=== PATIENT | male | born 1970 | race Caucasian/White ===

== ENCOUNTER → 2016-07-23 | Outpatient (CLI) | payer BC ==
[2016-07-23 17:45] LABS: BASO % 0.5 %; BASO ABS # 0.04 K/uL (0-0.2); COMPLETE YES; EOS % 3.3 %; HEMATOCRIT 43.2 % (42-52); IG% 0.4 %; LYMPH % 30.7 %; LYMPH ABS # 2.24 K/uL (1.2-3.4); MEAN CELL VOLUME 87.4 fL (80-100); MEAN CORPUSCULAR HEMOGLOBIN 31.8 pg (25-34); MEAN CORPUSCULAR HGB CONC 36.3 g/dl (32-36); MEAN PLATELET VOLUME 9.8 fL (7.4-10.4); NEUT % 57.1 %; PLATELET COUNT 219 K/uL (130-400); RED BLOOD COUNT 4.94 M/uL (4.7-6.1); WHITE BLOOD COUNT 7.29 K/uL (4.8-10.8)
[2016-07-23 18:25] LABS: ALT/SGPT 34 U/L (12-78); AST/SGOT 15 U/L (15-37); BLOOD UREA NITROGEN 11 mg/dl (7-18); BUN/CREATININE RATIO 8.8 (10-20); CALCIUM 8.9 mg/dl (8.5-10.1); CARBON DIOXIDE 29 mmol/L (21-32); CHLORIDE 107 mmol/L (98-107); GLUCOSE 102 mg/dl (70-99); SODIUM 143 mmol/L (136-145)
[2016-07-23 18:27] LABS: ALB/GLOB RATIO 1.2 (0.9-2); ALKALINE PHOSPHATASE 81 U/L (45-117)
== END | disposition home or self-care (01) ==
LOC: C.LABMFLN 11:07
PROVIDERS: ATTEND Dermatology
DX: Z85.820 Personal history of malignant melanoma of skin (principal)

== ENCOUNTER 2024-11-19 16:46 | Inpatient (IN) ==
[2024-11-19] MEDS: SODIUM CHLORIDE 0.9% 1,000 ML IV SCH (16:57)
[2024-11-19] MEDS: ONDANSETRON INJ 2 MG/ML 2 ML VIAL IV STA ×2 (17:03→19:06)
[2024-11-19] MEDS: KETOROLAC 30 MG/ML VIAL IV STA (17:06)
[2024-11-19] MEDS: DIPHTHER/TETAN/PERTUS Vaccine (Tdap, Adol/Adult) 0.5mL IM ONE (17:08)
[2024-11-19 17:14] LABS: Fibrinogen 201 mg/dl (184-400)
--- NOTE | 2024-11-19 17:17 | Emergency Department Note ---
Impression & Plan Venomous snake bite, Swelling of right upper extremity, Thrombocytopenia ED Provider Note NAME: MACKENZIE DAMIAN AGE: 54 SEX: M : 1970 ARRIVES VIA: Ambulance INFORMANT: Patient, ED PROVIDER(S): Alexandre Toscano MD CHIEF COMPLAINT: Rattlesnake bite MEDICAL DECISION MAKING: Patient presents with the above. IV was established and blood work was obtained along with coags fibrinogen. The patient was ordered updated tetanus shot, IV Ancef IV fentanyl after discussing with poison control who recommended the fentanyl as sometimes morphine can cause a histamine reaction. I did speak with pharmacy after ordering the patient's CroFab given the patient's significant swelling to the right hand. Patient does have some decreased sensation to the hand which is swollen but department compartments while swollen still feel soft and he is able to flex and extend the fingers as well as raise his thumb up and down. The extremity was kept up on a bed of pillows at the level of the heart. After speaking with poison trolls he did recommend what had already been initiated, which was crofab administration. Blood work does show a normal white count with normal hemoglobin platelet count of 16. Kidney function is unremarkable. Dimer 2400 with the patient's PT/INR APTT and fibrinogen are normal. Patient has had no significant bleeding noted. Patient did have a recurrence of nausea and vomiting was ordered additional IV Zofran. I did speak with poison control who stated the patient may receive an additional 2 vials at 6 hours post envenomation. This happened around 330 so repeat labs were ordered for 930. Patient does have swelling to the proximal forearm. Patient's hand has been reassessed several times and while the patient does have significant swelling the compartments are still soft and not taut and I able to range each finger with flexion and extension and the patient does not have significant pain. Do not believe the patient has evidence of compartment syndrome at this time. Upon subsequent reassessments the patient's pain is continuing to improve is less swollen and more mobile sensation improving. I did speak to poison control again after repeat CBC of the patient's coags that hemolyzed. Pending repeats. The patient's repeat platelet count is in the 200s. They did not recommend additional bolus doses but recommended 2 vials of CroFab every 6 hours x 3 after the initial bolus of 6 vials. Patient was informed of these findings. I did speak with Dr. Vargas and the patient was admitted to the medicine service. Critical Care: I have personally spent 150 minutes of critical care time in direct management of this patient. This includes bedside care, interpretation of diagnostic studies, and testing, discussion with consultants, patient, and family members, and other require inpatient management activities. This 150 minutes is in excess of all separately billable procedures. Discussion w/ other healthcare providers: [facility] poison control Dr. Vargas inpatient medicine service Prior /Outside records reviewed: None Differential diagnosis: Snakebite, coagulopathy, retained foreign body, compartment syndrome, cellulitis among others were considered. Diagnostics, as interpreted by me: ECG: None Cardiac monitoring: An order was placed for continuous cardiac monitoring. The monitor shows a rate of 69 with sinus rhythm. Patient was placed on pulse oximetry Medical decision rules: None Imaging studies: I informally interpreted the patient's right hand x-ray without obvious fracture with formal report to follow. HPI: Patient presents to concern for snake bite to the right hand. Patient was reportedly trying to move a snake off the road when he was bit around 330. Patient reportedly tried to suck the venom out. The patient did report feeling a little lightheaded and dizzy. EMS reported the patient felt as though his body was "whirring." Patient denies any chest pain or shortness of breath. He does have some associated nausea and abdominal discomfort. No difficulty with breathing. Per EMS they reported that he felt as though he had some swelling to the throat after trying to suck out the venom. PAST MEDICAL HISTORY: See Below PAST SURGICAL HISTORY: See Below SOCIAL HISTORY: See Below HOME MEDICATIONS: See Below ALLERGIES: See Below VITALS: See Below PHYSICAL EXAMINATION: GENERAL: NAD, non-toxic. EYE EXAM: Normal conjunctiva. PERRL, no anisocoria and EOM's grossly intact w/o pain. OROPHARYNX: Moist mucus membranes, grossly normal dentition. NECK: Trachea midline, no stridor. LUNGS: Clear to auscultation. Normal chest wall mechanics. HEART: NSR, no MRG. ABDOMEN: Abdomen soft, non-tender, no masses, no rebound or guarding. BACK: No CVA TTP. SKIN: No rashes and no bruising. UPPER EXTREMITIES: Significant right hand swelling with 2 puncture wounds to the posterior aspect of the right hand between the 1st and 2nd digits, hemostatic, able to flex and extend each of the fingers as well as the thumb, slight decrease sensation, swollen but compartments are still soft and not taut. Mild swelling noted to the proximal forearm to the mid forearm. LOWER EXTREMITIES: Grossly normal, no edema. NEURO EXAM: Awake and alert, follows commands, no obvious facial asymmetry, normal speech, moves all 4 extremities. Past Med/Surg History Problem List (Updated 11/20/24 @ 13:41 by Alexandre Toscano MD) Thrombocytopenia (Acute) Venomous snake bite (Acute) Swelling of right upper extremity (Acute) Social History Smoking Status: Former smoker Tobacco Type: Cigarettes and Smokeless Tobacco (Dip or Chew) Do You Dip or Chew Tobacco: No (Former); Hx Alcohol Use: Yes Alcohol type: beer Hx Substance Use: No Preferred Language: Serbian Communication Ability: Effective Step Down Nurse Required: No Beliefs That Will Affect Care: None Current Living Situation: Family Current Living Situation Comment: Home with father Feels Safe at Home: Yes Assistive Devices: None Allergies Allergies Allergy/AdvReac Type Severity Reaction Status Date / Time No Known Allergies Allergy Unverified 11/19/24 17:14 Home Meds Home Medications Medication Instructions Recorded Confirmed No Known Home Medications 11/20/24 11/20/24 Results & Data (ED) Vital Signs Vital Signs - 24 hr 11/19/24 16:45 11/19/24 17:15 11/19/24 17:15 Temperature 36.4 C L Temperature Source Oral Pulse Rate 95 H Pulse Rate [Apical] 81 Pulse Rate from SpO2 Sensor Pulse Rhythm [Apical] Pulse Strength [Apical] Respiratory Rate 14 33 H Respiratory Effort / Characteristics Respiratory Depth Respiratory Pattern Blood Pressure 117/82 100/74 Blood Pressure [Left Arm] 121/75 Blood Pressure Mean 93 87 Blood Pressure Mean [Left Arm] 90 Blood Pressure Position [Left Arm] Pulse Oximetry 99 100 Oxygen Delivery Method Room Air Room Air Sepsis New/Unexplained Change in Mental Status No Sepsis Action Taken by Nursing No Action Required 11/19/24 17:21 11/19/24 17:27 11/19/24 17:29 Temperature Temperature Source Pulse Rate 76 71 84 Pulse Rate [Apical] Pulse Rate from SpO2 Sensor 76 70 Pulse Rhythm [Apical] Pulse Strength [Apical] Respiratory Rate 23 22 Respiratory Effort / Characteristics Respiratory Depth Respiratory Pattern Blood Pressure Blood Pressure [Left Arm] Blood Pressure Mean Blood Pressure Mean [Left Arm] Blood Pressure Position [Left Arm] Pulse Oximetry 100 100 Oxygen Delivery Method Room Air Room Air Sepsis New/Unexplained Change in Mental Status Sepsis Action Taken by Nursing 11/19/24 17:30 11/19/24 17:36 11/19/24 17:46 Temperature Temperature Source Pulse Rate 72 Pulse Rate [Apical] Pulse Rate from SpO2 Sensor 71 Pulse Rhythm [Apical] Pulse Strength [Apical] Respiratory Rate 22 Respiratory Effort / Characteristics Respiratory Depth Respiratory Pattern Blood Pressure 116/77 128/40 L Blood Pressure [Left Arm] Blood Pressure Mean 82 46 Blood Pressure Mean [Left Arm] Blood Pressure Position [Left Arm] Pulse Oximetry 100 Oxygen Delivery Method Room Air Sepsis New/Unexplained Change in Mental Status Sepsis Action Taken by Nursing 11/19/24 17:48 11/19/24 17:58 11/19/24 18:00 Temperature Temperature Source Pulse Rate 67 Pulse Rate [Apical] 70 63 Pulse Rate from SpO2 Sensor 66 Pulse Rhythm [Apical] Pulse Strength [Apical] Respiratory Rate 24 17 24 Respiratory Effort / Characteristics Respiratory Depth Respiratory Pattern Blood Pressure Blood Pressure [Left Arm] 120/66 Blood Pressure Mean Blood Pressure Mean [Left Arm] 84 Blood Pressure Position [Left Arm] Pulse Oximetry 100 100 100 Oxygen Delivery Method Room Air Room Air Room Air Sepsis New/Unexplained Change in Mental Status Sepsis Action Taken by Nursing 11/19/24 18:09 11/19/24 18:16 11/19/24 18:30 Temperature Temperature Source Pulse Rate 62 60 Pulse Rate [Apical] Pulse Rate from SpO2 Sensor 62 59 L Pulse Rhythm [Apical] Pulse Strength [Apical] Respiratory Rate 14 16 Respiratory Effort / Characteristics Respiratory Depth Respiratory Pattern Blood Pressure 117/88 Blood Pressure [Left Arm] Blood Pressure Mean 95 Blood Pressure Mean [Left Arm] Blood Pressure Position [Left Arm] Pulse Oximetry 98 99 Oxygen Delivery Method Room Air Room Air Sepsis New/Unexplained Change in Mental Status Sepsis Action Taken by Nursing 11/19/24 18:31 11/19/24 18:45 11/19/24 18:47 Temperature Temperature Source Pulse Rate 61 Pulse Rate [Apical] Pulse Rate from SpO2 Sensor 62 Pulse Rhythm [Apical] Pulse Strength [Apical] Respiratory Rate 17 Respiratory Effort / Characteristics Respiratory Depth Respiratory Pattern Blood Pressure 116/83 136/80 Blood Pressure [Left Arm] Blood Pressure Mean 91 98 Blood Pressure Mean [Left Arm] Blood Pressure Position [Left Arm] Pulse Oximetry 100 Oxygen Delivery Method Room Air Sepsis New/Unexplained Change in Mental Status Sepsis Action Taken by Nursing 11/19/24 18:47 11/19/24 18:47 11/19/24 18:48 Temperature Temperature Source Pulse Rate 57 L Pulse Rate [Apical] Pulse Rate from SpO2 Sensor 58 L Pulse Rhythm [Apical] Pulse Strength [Apical] Respiratory Rate 16 Respiratory Effort / Characteristics Respiratory Depth Respiratory Pattern Blood Pressure 136/80 136/80 Blood Pressure [Left Arm] Blood Pressure Mean 98 98 Blood Pressure Mean [Left Arm] Blood Pressure Position [Left Arm] Pulse Oximetry 100 Oxygen Delivery Method Sepsis New/Unexplained Change in Mental Status Sepsis Action Taken by Nursing 11/19/24 19:03 11/19/24 19:15 11/19/24 19:15 Temperature Temperature Source Pulse Rate 66 65 Pulse Rate [Apical] Pulse Rate from SpO2 Sensor 69 66 Pulse Rhythm [Apical] Pulse Strength [Apical] Respiratory Rate 21 18 Respiratory Effort / Characteristics Respiratory Depth Respiratory Pattern Blood Pressure 129/96 Blood Pressure [Left Arm] Blood Pressure Mean 98 Blood Pressure Mean [Left Arm] Blood Pressure Position [Left Arm] Pulse Oximetry 99 92 Oxygen Delivery Method Sepsis New/Unexplained Change in Mental Status Sepsis Action Taken by Nursing 11/19/24 19:17 11/19/24 19:24 11/19/24 19:30 Temperature Temperature Source Pulse Rate 68 Pulse Rate [Apical] 70 Pulse Rate from SpO2 Sensor 68 Pulse Rhythm [Apical] Regular Pulse Strength [Apical] Normal Respiratory Rate 20 21 Respiratory Effort / Characteristics Non-Labored Respiratory Depth Normal Respiratory Pattern Regular Blood Pressure 145/79 H Blood Pressure [Left Arm] 129/96 Blood Pressure Mean 94 Blood Pressure Mean [Left Arm] 107 Blood Pressure Position [Left Arm] Sitting Pulse Oximetry 97 100 Oxygen Delivery Method Room Air Sepsis New/Unexplained Change in Mental Status Sepsis Action Taken by Nursing 11/19/24 19:30 11/19/24 19:30 11/19/24 19:30 Temperature Temperature Source Pulse Rate Pulse Rate [Apical] Pulse Rate from SpO2 Sensor Pulse Rhythm [Apical] Pulse Strength [Apical] Respiratory Rate Respiratory Effort / Characteristics Respiratory Depth Respiratory Pattern Blood Pressure 145/79 H 145/79 H 145/79 H Blood Pressure [Left Arm] Blood Pressure Mean 94 94 94 Blood Pressure Mean [Left Arm] Blood Pressure Position [Left Arm] Pulse Oximetry Oxygen Delivery Method Sepsis New/Unexplained Change in Mental Status Sepsis Action Taken by Nursing 11/19/24 19:31 11/19/24 19:33 11/19/24 19:42 Temperature 36.5 C Temperature Source Oral Pulse Rate 69 63 Pulse Rate [Apical] 71 Pulse Rate from SpO2 Sensor 69 63 Pulse Rhythm [Apical] Pulse Strength [Apical] Respiratory Rate 20 15 14 Respiratory Effort / Characteristics Non-Labored Spontaneous Respiratory Depth Normal Respiratory Pattern Regular Blood Pressure Blood Pressure [Left Arm] 145/79 H Blood Pressure Mean Blood Pressure Mean [Left Arm] 101 Blood Pressure Position [Left Arm] Semi-fowlers Pulse Oximetry 99 100 100 Oxygen Delivery Method Room Air Sepsis New/Unexplained Change in Mental Status Sepsis Action Taken by Nursing 11/19/24 19:46 11/19/24 19:48 11/19/24 19:57 Temperature Temperature Source Pulse Rate 69 66 Pulse Rate [Apical] Pulse Rate from SpO2 Sensor 66 66 Pulse Rhythm [Apical] Pulse Strength [Apical] Respiratory Rate 13 18 Respiratory Effort / Characteristics Respiratory Depth Respiratory Pattern Blood Pressure 145/83 H Blood Pressure [Left Arm] Blood Pressure Mean 96 Blood Pressure Mean [Left Arm] Blood Pressure Position [Left Arm] Pulse Oximetry 99 100 Oxygen Delivery Method Sepsis New/Unexplained Change in Mental Status Sepsis Action Taken by Nursing 11/19/24 20:00 11/19/24 20:00 11/19/24 20:00 Temperature Temperature Source Pulse Rate Pulse Rate [Apical] 69 Pulse Rate from SpO2 Sensor Pulse Rhythm [Apical] Pulse Strength [Apical] Respiratory Rate 19 Respiratory Effort / Characteristics Non-Labored Spontaneous Respiratory Depth Normal Respiratory Pattern Regular Blood Pressure 139/84 139/84 Blood Pressure [Left Arm] 139/84 Blood Pressure Mean 100 100 Blood Pressure Mean [Left Arm] 102 Blood Pressure Position [Left Arm] Semi-fowlers Pulse Oximetry 100 Oxygen Delivery Method Room Air Sepsis New/Unexplained Change in Mental Status Sepsis Action Taken by Nursing 11/19/24 20:09 11/19/24 20:15 11/19/24 20:15 Temperature Temperature Source Pulse Rate 65 Pulse Rate [Apical] Pulse Rate from SpO2 Sensor 68 Pulse Rhythm [Apical] Pulse Strength [Apical] Respiratory Rate 23 Respiratory Effort / Characteristics Respiratory Depth Respiratory Pattern Blood Pressure 141/85 H 141/85 H Blood Pressure [Left Arm] Blood Pressure Mean 99 99 Blood Pressure Mean [Left Arm] Blood Pressure Position [Left Arm] Pulse Oximetry 100 Oxygen Delivery Method Sepsis New/Unexplained Change in Mental Status Sepsis Action Taken by Nursing 11/19/24 20:21 11/19/24 20:30 11/19/24 20:30 Temperature Temperature Source Pulse Rate 73 67 Pulse Rate [Apical] 67 Pulse Rate from SpO2 Sensor 73 69 Pulse Rhythm [Apical] Pulse Strength [Apical] Respiratory Rate 20 18 23 Respiratory Effort / Characteristics Non-Labored Spontaneous Respiratory Depth Normal Respiratory Pattern Regular Blood Pressure Blood Pressure [Left Arm] 128/88 Blood Pressure Mean Blood Pressure Mean [Left Arm] 101 Blood Pressure Position [Left Arm] Semi-fowlers Pulse Oximetry 98 99 97 Oxygen Delivery Method Room Air Sepsis New/Unexplained Change in Mental Status Sepsis Action Taken by Nursing 11/19/24 21:06 11/19/24 22:00 Temperature Temperature Source Pulse Rate 69 Pulse Rate [Apical] 79 Pulse Rate from SpO2 Sensor Pulse Rhythm [Apical] Regular Pulse Strength [Apical] Respiratory Rate 18 Respiratory Effort / Characteristics Respiratory Depth Respiratory Pattern Blood Pressure Blood Pressure [Left Arm] 149/90 H Blood Pressure Mean Blood Pressure Mean [Left Arm] 109 Blood Pressure Position [Left Arm] Pulse Oximetry 99 Oxygen Delivery Method Room Air Sepsis New/Unexplained Change in Mental Status Sepsis Action Taken by Shelter Medications Current Medication List: was personally reviewed by me Laboratory Data Attestation: I reviewed the patient's lab results. 11/20/24 13:19 11/20/24 05:17 Lab Results 11/19/24 11/19/24 Range/Units 16:26 21:29 WBC 8.16 17.73 H (4.8-10.8) K/ul RBC 5.50 5.31 (4.70-6.10) M/uL Hgb 17.6 16.7 (14.0-18.0) g/dl Hct 47.2 46.8 (42.0-52.0) % MCV 85.8 88.1 (80.0-100.0) fL MCH 32.0 31.5 (25.0-34.0) pg MCHC 37.3 H 35.7 (32.0-36.0) g/dL RDW Std Deviation 41.0 43.7 (36.4-46.3) fL RDW Coeff of Lavinia 13.1 13.6 (11.5-14.5) % Plt Count 16 L* 213 D (130-400) K/uL MPV 11.5 9.1 L (9.4-12.4) fL Immature Gran % (Auto) 0.7 1.2 % Neut % (Auto) 53.3 84.8 % Lymph % (Auto) 35.2 7.1 % Lawrence % (Auto) 7.0 6.3 % Eos % (Auto) 2.9 0.2 % Baso % (Auto) 0.9 0.4 % Neut # (Auto) 4.35 15.05 H (1.40-6.50) K/uL Lymph # (Auto) 2.87 1.25 (1.20-3.40) K/uL Lawrence # (Auto) 0.57 1.11 H (0.11-0.59) K/uL Eos # (Auto) 0.24 0.03 (0.00-0.50) K/uL Baso # (Auto) 0.07 0.07 (0.00-0.20) K/uL Immature Gran # (Auto) 0.06 0.22 H (0.01-0.20) K/uL Platelet Estimate Signific. Decreased L (Normal) PT 10.3 Cancelled (9.0-12.0) Seconds INR 0.9 Cancelled (0.9-1.1) APTT 25 Cancelled (21-31) Seconds PTT Ratio 0.9 Cancelled Fibrinogen 201 Cancelled (184-400) mg/dl D-Dimer 2400 H* (0-500) ug/L FEU Sodium 140 143 (136-145) mmol/L Potassium 3.5 3.7 (3.5-5.1) mmol/L Chloride 106 113 H (98-107) mmol/L Carbon Dioxide 26 25 (21-32) mmol/L Anion Gap 8 5 (3-11) BUN 12 13 (6-23) mg/dl Creatinine 1.00 0.95 (0.6-1.4) mg/dl Est Cr Clr Drug Dosing 94.3 99.3 ml/min eGFR 88.88 94.53 BUN/Creatinine Ratio 12.0 13.7 (10-20) Glucose 107 H 125 H (70-99(Fasting)) mg/dl Calcium 9.7 7.6 L D (8.6-10.3) mg/dl Total Bilirubin 0.9 0.8 (0.2-1.0) mg/dl AST 23 21 (13-39) U/L ALT 33 27 (7-52) U/L Alkaline Phosphatase 71 48 (34-104) U/L Total Creatine Kinase 103 78 (30-223) U/L Total Protein 7.8 5.7 L D (6.0-8.3) gm/dl Albumin 4.7 3.3 L (3.4-5.0) gm/dl Globulin 3.1 2.4 L (2.5-4.0) gm/dl Albumin/Globulin Ratio 1.5 1.4 (0.9-2) Administered Medications Ceftriaxone Sodium (Rocephin) 2,000 mg in 50 mls @ 100 mls/hr IV Q24H [facility] Stop: 11/27/24 08:59 Last Infusion: 11/20/24 09:14 Dose: Infused Documented By: axel Admin: 11/20/24 08:17 Dose: 100 mls/hr Documented By: axel Ketorolac Tromethamine (Ketorolac 30 Mg/Ml Vial) 30 mg IV Q6H PRN PRN Reason: Moderate Pain (Scale 4, 5, 6) Stop: 11/24/24 23:56 Last Admin: 11/20/24 05:42 Dose: 30 mg Documented By: PANFILO Discontinued Medications Calcium Carbonate (Calcium Carbonate 500 Mg Chewable Tab) 1,500 mg PO NOW STA Stop: 11/19/24 22:08 Last Admin: 11/19/24 22:52 Dose: 1,500 mg Documented By: CHARLEEN Diphtheria/Pertussis/Tetanus Vacc (Diphther/Tetan/Pertus Vaccine (Tdap, Adol/Adult) 0.5ml) 0.5 ml IM .ONCE ONE Stop: 11/19/24 16:51 Last Admin: 11/19/24 17:08 Dose: 0.5 ml Documented By: DODIE Fentanyl Citrate (Fentanyl Citrate Pf 100 Mcg/2 Ml Vial) 50 mcg IV NOW STA Stop: 11/19/24 16:59 Last Admin: 11/19/24 17:49 Dose: 50 mcg Documented By: DODIE Sodium Chloride (Nss) 1,000 mls @ 999 mls/hr IV .Q1H1M ALEX Stop: 11/19/24 18:00 Last Infusion: 11/19/24 17:58 Dose: Infused Documented By: Admin: 11/19/24 16:57 Dose: 999 mls/hr Documented By: DODIE Cefazolin Sodium (Ancef 2000mg) 2,000 mg in 15 mls @ 3.75 mls/min IV NOW STA Stop: 11/19/24 16:53 Last Admin: 11/19/24 17:04 Dose: 3.75 mls/min Documented By: DODIE Crotalidae Polyvalent Antivenin 6 vial/ Sodium Chloride 250 mls @ 250 mls/hr IV NOW STA Stop: 11/19/24 17:56 Last Infusion: 11/19/24 19:16 Dose: Infused Documented By: Infusion: 11/19/24 18:19 Dose: 250 mls/hr Documented By: Infusion: 11/19/24 18:06 Dose: 100 mls/hr Documented By: Admin: 11/19/24 17:52 Dose: 25 mls/hr Documented By: DODIE Famotidine (Pepcid 20mg Iv Push) 20 mg in 5 mls @ 2.5 mls/min IV NOW STA Stop: 11/19/24 16:59 Last Admin: 11/19/24 17:20 Dose: 2.5 mls/min Documented By: DODIE Sodium Chloride (Nss) 1,000 mls @ 999 mls/hr IV .Q1H1M ONE Stop: 11/19/24 18:29 Last Infusion: 11/19/24 18:33 Dose: Infused Documented By: Admin: 11/19/24 17:32 Dose: 999 mls/hr Documented By: DODIE Crotalidae Polyvalent Antivenin 2 vial/ Sodium Chloride 250 mls @ 250 mls/hr IV Q6H ALEX Stop: 11/20/24 11:59 Last Infusion: 11/20/24 12:43 Dose: Infused Documented By: Infusion: 11/20/24 11:33 Dose: 250 mls/hr Documented By: Admin: 11/20/24 11:30 Dose: 250 mls/hr Documented By: Infusion: 11/20/24 07:07 Dose: Infused Documented By: axel Admin: 11/20/24 05:41 Dose: 250 mls/hr Documented By: Infusion: 11/20/24 01:44 Dose: Infused Documented By: Admin: 11/20/24 00:34 Dose: 250 mls/hr Documented By: PANFILO Sodium Chloride (Nss) 1,000 mls @ 100 mls/hr IV .Q10H ALEX Stop: 11/20/24 09:44 Last Infusion: 11/20/24 10:25 Dose: Infused Documented By: axel Admin: 11/20/24 00:34 Dose: 100 mls/hr Documented By: PANFILO Ketorolac Tromethamine (Ketorolac 30 Mg/Ml Vial) 30 mg IV NOW STA Stop: 11/19/24 16:51 Last Admin: 11/19/24 17:06 Dose: 30 mg Documented By: DODIE Miscellaneous Information (Patient's Allergy Info Needs Entered) 1 each N/A NOW STA Stop: 11/19/24 17:08 Last Admin: 11/19/24 17:24 Dose: Not Given Documented By: DODIE Morphine Sulfate (Morphine Sulfate 4 Mg/Ml 1 Ml Carp\\Vial) 4 mg IV NOW STA Stop: 11/19/24 16:51 Last Admin: 11/19/24 17:26 Dose: Not Given Documented By: DODIE Ondansetron HCl (Ondansetron Inj 2 Mg/Ml 2 Ml Vial) 4 mg IV NOW STA Stop: 11/19/24 17:00 Last Admin: 11/19/24 17:03 Dose: 4 mg Documented By: DODIE Ondansetron HCl (Ondansetron Inj 2 Mg/Ml 2 Ml Vial) 4 mg IV NOW STA Stop: 11/19/24 19:04 Last Admin: 11/19/24 19:06 Dose: 4 mg Documented By: PANFILO Imaging Data Radiologist's Impression: Hand X-Ray 11/19/24 16:55 3 views of the right hand are submitted for review. Findings: No fracture or dislocation is seen. No significant arthritic changes are noted. No other osseous abnormality is identified. There are no radiopaque foreign bodies. Impression: Unremarkable radiographs of the right hand Electronically signed by Federico Wilson 11-19-2024 5:31 PM Discharge Plan Visit Data Chief Complaint: Animal Bite Stated Complaint: rattlesnake bite ED Provider: Alexandre Toscano Discharge Problem: Venomous snake bite, Swelling of right upper extremity, Thrombocytopenia Patient Disposition: Admitted As Inpatient Condition: Good Discharge Instructions Interventions: ED Discharge Assessment Last Done: 11/20/24 02:19 Discharge Problem: Venomous snake bite Qualifiers: Encounter type: initial encounter Injury intent: accidental or unintentional Q ualified Code(s): T63.001A - Toxic effect of unspecified snake venom, accidental (unintentional), initial encounter
[2024-11-19 17:20] LABS: Hematocrit (blood only) 47.2 % (42.0-52.0); Hemoglobin 17.6 g/dl (14.0-18.0); Mean Corpuscular Hemoglobin 32.0 pg (25.0-34.0); Mean Corpuscular Volume 85.8 fL (80.0-100.0); Platelet Count 16 K/uL (130-400); RDW Standard Deviation 41.0 fL (36.4-46.3); Red Blood Count 5.50 M/uL (4.70-6.10); White Blood Count 8.16 K/ul (4.8-10.8)
[2024-11-19] MEDS: FAMOTIDINE 20MG IV PUSH 20 MG/5 ML SYR IV STA (17:20)
[2024-11-19 17:21] LABS: INR 0.9 (0.9-1.1); Partial Thromboplastin Time 25 Seconds (21-31); Prothrombin Time 10.3 Seconds (9.0-12.0)
[2024-11-19 17:25] LABS: Alanine Aminotransferase 33.0 U/L (7-52); Albumin Globulin Ratio 1.5 (0.9-2); Alkaline Phosphatase 71.0 U/L (34-104); Anion Gap 8.0 (3-11); Bilirubin,Total 0.9 mg/dl (0.2-1.0); Blood Urea Nitrogen 12.0 mg/dl (6-23); Calcium 9.7 mg/dl (8.6-10.3); Carbon Dioxide 26.0 mmol/L (21-32); Chloride 106.0 mmol/L (98-107); Creatine Kinase 103.0 U/L (30-223); Creatinine Clr Calc Pharmacy 94.3 ml/min; Globulin 3.1 gm/dl (2.5-4.0); Glucose 107.0 mg/dl (70-99(Fasting)); Potassium 3.5 mmol/L (3.5-5.1); Sodium 140.0 mmol/L (136-145); Total Protein 7.8 gm/dl (6.0-8.3)
[2024-11-19] MEDS: MoRPHine SULFATE 4 MG/ML 1 ML CARP\\VIAL IV STA (17:26)
[2024-11-19] MEDS: SODIUM CHLORIDE 0.9% 1,000 ML IV ONE (17:32)
--- NOTE | 2024-11-19 17:32 | XRay Report ---
3 views of the right hand are submitted for review. Findings: No fracture or dislocation is seen. No significant arthritic changes are noted. No other osseous abnormality is identified. There are no radiopaque foreign bodies. Impression: Unremarkable radiographs of the right hand Electronically signed by Federico Wilson 11-19-2024 5:31 PM
[2024-11-19 17:43] LABS: Immature Granulocytes # (auto) 0.06 K/uL (0.01-0.20); Immature Granulocytes % (auto) 0.7 %
[2024-11-19] MEDS: [UNRECOGNIZED DRUG - OTHER] IV STA (17:52)
[2024-11-19] MEDS: SODIUM CHLORIDE IV STA (17:52)
[2024-11-19 21:43] LABS: Hematocrit (blood only) 46.8 % (42.0-52.0); Hemoglobin 16.7 g/dl (14.0-18.0); Immature Granulocytes # (auto) 0.22 K/uL (0.01-0.20); Immature Granulocytes % (auto) 1.2 %; Mean Corpuscular Hemoglobin 31.5 pg (25.0-34.0); Mean Corpuscular Volume 88.1 fL (80.0-100.0); Platelet Count 213 K/uL (130-400); RDW Standard Deviation 43.7 fL (36.4-46.3); Red Blood Count 5.31 M/uL (4.70-6.10); White Blood Count 17.73 K/ul (4.8-10.8)
[2024-11-19 22:05] LABS: Total Protein 5.7 gm/dl (6.0-8.3)
[2024-11-19 22:06] LABS: Alanine Aminotransferase 27.0 U/L (7-52); Albumin Globulin Ratio 1.4 (0.9-2); Alkaline Phosphatase 48.0 U/L (34-104); Anion Gap 5.0 (3-11); Bilirubin,Total 0.8 mg/dl (0.2-1.0); Blood Urea Nitrogen 13.0 mg/dl (6-23); Calcium 7.6 mg/dl (8.6-10.3); Carbon Dioxide 25.0 mmol/L (21-32); Chloride 113.0 mmol/L (98-107); Creatine Kinase 78.0 U/L (30-223); Creatinine Clr Calc Pharmacy 99.3 ml/min; Globulin 2.4 gm/dl (2.5-4.0); Glucose 125.0 mg/dl (70-99(Fasting)); Potassium 3.7 mmol/L (3.5-5.1); Sodium 143.0 mmol/L (136-145)
[2024-11-19] MEDS ORDERED: SODIUM CHLORIDE IV STA (22:38)
[2024-11-19] MEDS ORDERED: [UNRECOGNIZED DRUG - OTHER] IV STA (22:38)
[2024-11-19] MEDS: CALCIUM CARBONATE 500 MG CHEWABLE TAB PO STA (22:52)
--- NOTE | 2024-11-19 23:41 | History & Physical Report ---
Date of Service November 19, 2024 Assessment & Plan (1) Bite, snake: (2) Swelling of right upper extremity: Plan The patient is a 54-year-old male with no significant past medical history who presents to the emergency department after a rattlesnake bite. The patient presented to the emergency department 3 hours after he was bitten by a rattlesnake when he was trying to move with as the road using a stick, and reports that around send patient prefers on the right index finger approximately 1530 this afternoon. He reports he tried to suck the poison of the wound after it happened, and had face and throat feeling funny. Upon arrival right hand, wrist and lower arm were swelling. In the emergency department he was given first dose of CroFab, had laboratories drawn, and had significant improvement in right hand, wrist and arm swelling, and had no symptomatology with breathing and face. Poison control was called, and outlined the protocol for completion of administration of CroFab, for which patient will be admitted to the PCU for monitoring. Rattlesnake bite- Patient received initial dosing of CroFab in ED, and will receive a second dosing 6 hours later per Poison Control Initial laboratory evaluation showed a leukocytosis with WBC 17.73, D-dimer 2400 Admit to the PCU, additional dosages of CroFab and laboratories have been ordered by emergency department per recommendation of poison control In ED patient received the following: Normal saline 2 L IV bolus, Toradol 30 mg IV, morphine sulfate 4 mg IV, Ancef 2 g IV, Adacel booster, fentanyl 50 mcg IV, famotidine 20 mg IV, Zofran 4 mg IV, x 2, and calcium carbonate Acetaminophen 1 g IV every 8 hours as needed for mild pain or fever Zofran 4 mg IV every 6 hours as needed Ceftriaxone 2 g IV every 24 hours Toradol 30 mg IV every 6 hours as needed. NSS at 100 mL/h x 1 L normal History of Present Illness Chief Complaint: The patient presented to the emergency department 3 hours after he was bitten by a rattlesnake when he was trying to move with as the road using a stick, and reports that around send patient prefers on the right index finger approximately 1530 this afternoon. He reports he tried to suck the poison of the wound after it happened, and had face and throat feeling funny. Upon arrival right hand, wrist and lower arm were swelling. In the emergency department he was given first dose of CroFab, had laboratories drawn, and had significant improvement in right hand, wrist and arm swelling, and had no symptomatology with breathing and face. Primary Care Provider: NO PCP The patient is a 54-year-old male with no significant past medical history who presents to the emergency department after a rattlesnake bite. The patient presented to the emergency department 3 hours after he was bitten by a rattlesnake when he was trying to move with as the road using a stick, and reports that around send patient prefers on the right index finger approximately 1530 this afternoon. He reports he tried to suck the poison of the wound after it happened, and had face and throat feeling funny. Upon arrival right hand, wrist and lower arm were swelling and had some decrease sensation associated with swelling. In the emergency department he was given first dose of CroFab, had laboratories drawn, and had some improvement in right hand, wrist and arm swelling, and did not have any shortness of breath. He also received fentanyl IV as needed, as recommended by poison control, advised to avoid morphine due to potential for histamine reaction. Patient did develop some nausea and vomiting, responded to IV Zofran. Poison control recommended additional 2 vials of antivenom 6 hours post initial treatment. Allergies Allergy/AdvReac Type Severity Reaction Status Date / Time No Known Allergies Allergy Unverified 11/19/24 17:14 Past Med/Surg History Problem List (Updated 11/19/24 @ 23:52 by Rolando Orellana MD) Swelling of right upper extremity Bite, snake (Acute) Social History Smoking Status: Former smoker Preferred Language: Khmer Feels Safe at Home: Yes Review of Systems Review of Systems: the patient currently denies chest pain, palpitations, shortness of breath, dyspnea on exertion, cough, lower extremity swelling, sore throat, fevers, chills, sweats, weight change, fatigue, nausea, vomiting, diarrhea , constipation, abdominal pain, pelvic pain, blood in urine or stool, dysuria, urinary frequency or urgency, lightheadedness, dizziness, headache, memory loss, loss of consciousness, rash, abnormal bruising or bleeding, imbalance, focal or generalized weakness, numbness or tingling in arms or legs, generalized arthralgias or myalgias, back or neck pain, or night sweats. The review of systems is otherwise negative other than for that already noted above, and at least 10 systems have been reviewed. Physical Exam Physical Exam: The patient is awake, alert and oriented 3, well developed and well nourished, normocephalic and atraumatic, lying in bed and in no acute distress. HEENT--PERRL, EOMI, mucous membranes and oropharynx dry. Neck--supple. No JVD. No bruits. Thyroid normal, trachea midline, no adenopathy. Heart--normal S1 and S2. No murmurs, rubs or gallops. Lungs--clear bilaterally, no respiratory distress, no accessory muscle use. Abdomen--normal bowel sounds and soft. Nontender. Nondistended, no hernias or masses, no organomegaly. Extremities--right upper extremity with swelling hand and forearm Dermatologic normal except for above-- Neurologic--cranial nerves II through XII grossly intact. Rheumatologic--normal range of motion except for right hand and forearm Psychiatric--normal affect. Results & Data Results & Data Vital Signs (Past 12 Hours) Vital Signs Temp Pulse Pulse Resp BP BP Pulse Ox 11/19/24 22:00 79 18 149/90 H 99 11/19/24 21:06 69 11/19/24 20:30 67 23 97 11/19/24 20:30 67 18 128/88 99 11/19/24 20:21 73 20 98 11/19/24 20:15 141/85 H 11/19/24 20:15 141/85 H 11/19/24 20:09 65 23 100 11/19/24 20:00 139/84 11/19/24 20:00 139/84 11/19/24 20:00 69 19 139/84 100 11/19/24 19:57 66 18 100 11/19/24 19:48 69 13 99 11/19/24 19:46 145/83 H 11/19/24 19:42 63 14 100 11/19/24 19:33 69 15 100 11/19/24 19:31 36.5 C 71 20 145/79 H 99 11/19/24 19:30 145/79 H 11/19/24 19:30 145/79 H 11/19/24 19:30 145/79 H 11/19/24 19:30 145/79 H 11/19/24 19:24 68 21 100 11/19/24 19:17 70 20 129/96 97 11/19/24 19:15 129/96 11/19/24 19:15 65 18 92 11/19/24 19:03 66 21 99 11/19/24 18:48 57 L 16 100 11/19/24 18:47 136/80 11/19/24 18:47 136/80 11/19/24 18:47 136/80 11/19/24 18:45 61 17 100 11/19/24 18:31 116/83 11/19/24 18:30 60 16 99 11/19/24 18:16 117/88 11/19/24 18:09 62 14 98 11/19/24 18:00 63 24 120/66 100 11/19/24 17:58 70 17 100 11/19/24 17:48 67 24 100 11/19/24 17:46 128/40 L 11/19/24 17:36 72 22 100 11/19/24 17:30 116/77 11/19/24 17:29 84 11/19/24 17:27 71 22 100 11/19/24 17:21 76 23 100 11/19/24 17:15 100/74 11/19/24 17:15 81 33 H 121/75 100 11/19/24 16:45 36.4 C L 95 H 14 117/82 99 O2 Del Method 11/19/24 22:00 Room Air 11/19/24 21:06 11/19/24 20:30 11/19/24 20:30 Room Air 11/19/24 20:21 11/19/24 20:15 11/19/24 20:15 11/19/24 20:09 11/19/24 20:00 11/19/24 20:00 11/19/24 20:00 Room Air 11/19/24 19:57 11/19/24 19:48 11/19/24 19:46 11/19/24 19:42 11/19/24 19:33 11/19/24 19:31 Room Air 11/19/24 19:30 11/19/24 19:30 11/19/24 19:30 11/19/24 19:30 11/19/24 19:24 11/19/24 19:17 Room Air 11/19/24 19:15 11/19/24 19:15 11/19/24 19:03 11/19/24 18:48 11/19/24 18:47 11/19/24 18:47 11/19/24 18:47 11/19/24 18:45 Room Air 11/19/24 18:31 11/19/24 18:30 Room Air 11/19/24 18:16 11/19/24 18:09 Room Air 11/19/24 18:00 Room Air 11/19/24 17:58 Room Air 11/19/24 17:48 Room Air 11/19/24 17:46 11/19/24 17:36 Room Air 11/19/24 17:30 11/19/24 17:29 11/19/24 17:27 Room Air 11/19/24 17:21 Room Air 11/19/24 17:15 11/19/24 17:15 Room Air 11/19/24 16:45 Room Air Laboratory Results Laboratory Results WBC 17.73 K/ul (4.8-10.8) H 11/19/24 21: RBC 5.31 M/uL (4.70-6.10) 11/19/24 21: Hgb 16.7 g/dl (14.0-18.0) 11/19/24 21: Hct 46.8 % (42.0-52.0) 11/19/24 21: MCV 88.1 fL (80.0-100.0) 11/19/24 21: MCH 31.5 pg (25.0-34.0) 11/19/24 21: MCHC 35.7 g/dL (32.0-36.0) 11/19/24 21: RDW Std Deviation 43.7 fL (36.4-46.3) 11/19/24 21: RDW Coeff of Lavinia 13.6 % (11.5-14.5) 11/19/24 21: Plt Count 213 K/uL (130-400) D 11/19/24 21: MPV 9.1 fL (9.4-12.4) L 11/19/24 21: Immature Gran % (Auto) 1.2 % 11/19/24 21: Neut % (Auto) 84.8 % 11/19/24 21: Lymph % (Auto) 7.1 % 11/19/24: [place] % (Auto) 6.3 % 11/19/24 21: Eos % (Auto) 0.2 % 11/19/24 21: Baso % (Auto) 0.4 % 11/19/24: Neut # (Auto) 15.05 K/uL (1.40-6.50) H 11/19/24 21: Lymph # (Auto) 1.25 K/uL (1.20-3.40) 11/19/24: [place] # (Auto) 1.11 K/uL (0.11-0.59) H 11/19/24 21: Eos # (Auto) 0.03 K/uL (0.00-0.50) 11/19/24 21: Baso # (Auto) 0.07 K/uL (0.00-0.20) 11/19/24 21: Immature Gran # (Auto) 0.22 K/uL (0.01-0.20) H 11/19/24 21: Platelet Estimate Signific. Decreased (Normal) L 11/19/24 16:26 PT Cancelled 11/19/24 21: INR Cancelled 11/19/24 21: APTT Cancelled 11/19/24 21: PTT Ratio Cancelled 11/19/24 21: Fibrinogen Cancelled 11/19/24 21: D-Dimer 2400 ug/L FEU (0-500) H* 11/19/24 16:26 Sodium 143 mmol/L (136-145) 11/19/24 21: Potassium 3.7 mmol/L (3.5-5.1) 11/19/24 21: Chloride 113 mmol/L (98-107) H 11/19/24 21: Carbon Dioxide 25 mmol/L (21-32) 11/19/24 21: Anion Gap 5 (3-11) 11/19/24 21: BUN 13 mg/dl (6-23) 11/19/24 21: Creatinine 0.95 mg/dl (0.6-1.4) 11/19/24 21: Est Cr Clr Drug Dosing 99.3 ml/min 11/19/24 21: eGFR 94.53 11/19/24 21: BUN/Creatinine Ratio 13.7 (10-20) 11/19/24 21: Glucose 125 mg/dl (70-99(Fasting)) H 11/19/24 21: Calcium 7.6 mg/dl (8.6-10.3) L D 11/19/24 21: Total Bilirubin 0.8 mg/dl (0.2-1.0) 11/19/24 21: AST 21 U/L (13-39) 11/19/24: ALT 27 U/L (7-52) 11/19/24: Alkaline Phosphatase 48 U/L (34-104) 11/19/24 21: Total Creatine Kinase 78 U/L (30-223) 11/19/24: Total Protein 5.7 gm/dl (6.0-8.3) L D 11/19/24: Albumin 3.3 gm/dl (3.4-5.0) L 11/19/24: Globulin 2.4 gm/dl (2.5-4.0) L 11/19/24 21: Albumin/Globulin Ratio 1.4 (0.9-2) 11/19/24 21: Impressions Hand X-Ray 11/19/24 16:55 3 views of the right hand are submitted for review. Findings: No fracture or dislocation is seen. No significant arthritic changes are noted. No other osseous abnormality is identified. There are no radiopaque foreign bodies. Impression: Unremarkable radiographs of the right hand Electronically signed by Federico Wilson 11-19-2024 5:31 PM Code Status & VTE Plan Code Status Full code VTE Prophylaxis Plan VTE Prophylaxis will be ordered: Yes PG Care Time/CCT Total # of Minutes Spent Total Time Spent with Patient: Total time spent is greater than 50% in coordination of care (as documented) at patient's floor/unit and/or counseling patient: Coding Level of Care Code 06060 INT INP/OBS CARE 3/75MIN Diagnoses Bite, snake W59.11XA Encounter type: initial encounter Swelling of right upper extremity M79.89 (1) Bite, snake Encounter type: initial encounter Qualified Code(s): W59.11XA - Bitten by nonvenomous snake, initial encounter
[2024-11-20] MEDS: SODIUM CHLORIDE 0.9% 1,000 ML IV SCH (00:34)
[2024-11-20] MEDS: SODIUM CHLORIDE IV SCH (00:34)
[2024-11-20] MEDS: [UNRECOGNIZED DRUG - OTHER] IV SCH (00:34)
[2024-11-20 00:38] LABS: Partial Thromboplastin Time 24 Seconds (21-31)
[2024-11-20 00:46] LABS: Prothrombin Time 21.4 Seconds (9.0-12.0)
[2024-11-20 00:55] LABS: Fibrinogen < 50 mg/dl (184-400); INR 2.3 (0.9-1.1)
[2024-11-20] MEDS ORDERED: ONDANSETRON INJ 2 MG/ML 2 ML VIAL IV PRN (02:19)
[2024-11-20] MEDS ORDERED: ACETAMINOPHEN 1000 MG/100 ML IV IV PRN (02:19)
[2024-11-20] MEDS: KETOROLAC 30 MG/ML VIAL IV PRN (05:42)
[2024-11-20 06:06] LABS: Hematocrit (blood only) 44.2 % (42.0-52.0); Hemoglobin 15.6 g/dl (14.0-18.0); Immature Granulocytes # (auto) 0.12 K/uL (0.01-0.20); Immature Granulocytes % (auto) 0.9 %; Mean Corpuscular Hemoglobin 31.1 pg (25.0-34.0); Mean Corpuscular Volume 88.2 fL (80.0-100.0); Platelet Count 212 K/uL (130-400); RDW Standard Deviation 43.9 fL (36.4-46.3); Red Blood Count 5.01 M/uL (4.70-6.10); White Blood Count 13.99 K/ul (4.8-10.8)
[2024-11-20 06:23] LABS: Alanine Aminotransferase 22.0 U/L (7-52); Albumin Globulin Ratio 1.7 (0.9-2); Alkaline Phosphatase 42.0 U/L (34-104); Anion Gap 6.0 (3-11); Bilirubin,Total 0.9 mg/dl (0.2-1.0); Blood Urea Nitrogen 13.0 mg/dl (6-23); Calcium 7.9 mg/dl (8.6-10.3); Carbon Dioxide 23.0 mmol/L (21-32); Chloride 112.0 mmol/L (98-107); Creatinine Clr Calc Pharmacy 91.6 ml/min; Globulin 2.0 gm/dl (2.5-4.0); Glucose 103.0 mg/dl (70-99(Fasting)); Magnesium 1.8 mg/dl (1.7-2.4); Potassium 3.7 mmol/L (3.5-5.1); Sodium 141.0 mmol/L (136-145); Total Protein 5.3 gm/dl (6.0-8.3)
[2024-11-20 06:30] LABS: INR 1.4 (0.9-1.1); Partial Thromboplastin Time 24 Seconds (21-31); Prothrombin Time 15.1 Seconds (9.0-12.0)
[2024-11-20] MEDS: cefTRIAXone SODIUM 2,000 MG/50 ML BAG IV SCH (08:17)
[2024-11-20 13:33] LABS: Hematocrit (blood only) 45.3 % (42.0-52.0); Hemoglobin 16.0 g/dl (14.0-18.0); Immature Granulocytes # (auto) 0.09 K/uL (0.01-0.20); Immature Granulocytes % (auto) 0.7 %; Mean Corpuscular Hemoglobin 31.1 pg (25.0-34.0); Mean Corpuscular Volume 88.1 fL (80.0-100.0); Platelet Count 207 K/uL (130-400); RDW Standard Deviation 43.9 fL (36.4-46.3); Red Blood Count 5.14 M/uL (4.70-6.10); White Blood Count 12.92 K/ul (4.8-10.8)
[2024-11-20 14:09] LABS: INR 1.1 (0.9-1.1); Prothrombin Time 11.6 Seconds (9.0-12.0)
[2024-11-20 15:04] LABS: Fibrinogen 123 mg/dl (184-400)
[2024-11-20] MEDS ORDERED: MoRPHine SULFATE 2 MG/ML CARP IV PRN (17:55)
--- NOTE | 2024-11-20 17:57 | Hospitalist Progress Note ---
Date of Service November 20, 2024 Assessment & Plan (1) Bite, snake: (2) Swelling of right upper extremity: Plan The patient is a 54-year-old male with no significant past medical history who presents to the emergency department after a rattlesnake bite. The patient presented to the emergency department 3 hours after he was bitten by a rattlesnake when he was trying to move with as the road using a stick, and reports that around send patient prefers on the right index finger approximately 1530 this afternoon. He reports he tried to suck the poison of the wound after it happened, and had face and throat feeling funny. Upon arrival right hand, wrist and lower arm were swelling. In the emergency department he was given first dose of CroFab, had laboratories drawn, and had significant improvement in right hand, wrist and arm swelling, and had no symptomatology with breathing and face. Poison control was called, and outlined the protocol for completion of administration of CroFab, for which patient will be admitted to the PCU for monitoring. Pt admitted overnight for rattlesnake bite. On arrival, pt received 6 vials of Crofab followed by 2 vials q6h x3 more doses. He has been having waxing and waning upper extremity swelling, tightness of the hand. His case was discussed with poison control. Last spoke with Dr. Parekh. He recommended checking CK. If pain worsens, he recommends giving him an additional 6 vials and reassess. If still not improving, then discuss with Poison control again. #Rattlesnake bite - s/p Crofab 6 vials f/b 2 vials q6h x3 - monitor Hgb, Platelets, Fibrinogen, CK, PT / INR (follow with poison control prn- ) - In ED patient received the following: Normal saline 2 L IV bolus, Toradol 30 mg IV, morphine sulfate 4 mg IV, Ancef 2 g IV, Adacel booster, fentanyl 50 mcg IV, famotidine 20 mg IV, Zofran 4 mg IV, x 2, and calcium carbonate - pain control with tylenol, oxycodone, morphine, ketorolac - Zofran 4 mg IV every 6 hours as needed - Ceftriaxone 2 g IV every 24 hours for superimposed infection #Dispo: poison control recs monitoring overnight at this time #DVT ppx: ambulation Admission and Anticipated Discharge Date Admission Date: November 19, 2024 Subjective Pt is having waxing and waning edema Keep right arm elevated Review of Systems Review of Systems: Comprehensive ROS completed and is otherwise negative. Physical Exam Physical Exam: Gen: no acute distress, lying in bed comfortable HEENT: NC/AT, MMM Lungs: nonlabored breathing, CTAB CVS: s1s2nl, RRR Abd: nl bowel sounds, soft, NT / ND : no serrato Ext: no edema RUE: hand tense and edematous, edema extending proximally, bruising noted near the axilla (expected) Neuro: AAOx3 Psych: calm, cooperative Results & Data Results & Data Vital Signs (Past 12 Hours) Vital Signs Temp Pulse Pulse Resp BP Pulse Ox O2 Del Method 11/20/24 16:09 77 11/20/24 15:45 36.6 C 62 18 174/84 H 98 Room Air 11/20/24 11:48 36.6 C 65 18 150/74 H 97 Room Air 11/20/24 10:00 70 16 153/98 H 99 Room Air 11/20/24 07:23 70 11/20/24 06:28 65 18 146/77 H 99 Room Air PG Care Time/CCT Total # of Minutes Spent Total Time Spent with Patient: Total time spent is greater than 50% in coordination of care (as documented) at patient's floor/unit and/or counseling patient: Coding Level of Care Code 77590 SUB INP/OBS CARE 3/50MIN Diagnoses Bite, snake W59.11XA Encounter type: initial encounter Swelling of right upper extremity M79.89 (1) Bite, snake Encounter type: initial encounter Qualified Code(s): W59.11XA - Bitten by nonvenomous snake, initial encounter
[2024-11-20] MEDS: ACETAMINOPHEN 325 MG TAB PO PRN (18:15)
[2024-11-20 18:33] LABS: Hematocrit (blood only) 43.6 % (42.0-52.0); Hemoglobin 15.5 g/dl (14.0-18.0); Mean Corpuscular Hemoglobin 31.3 pg (25.0-34.0); Mean Corpuscular Volume 87.9 fL (80.0-100.0); Platelet Count 199 K/uL (130-400); RDW Standard Deviation 43.8 fL (36.4-46.3); Red Blood Count 4.96 M/uL (4.70-6.10); White Blood Count 11.28 K/ul (4.8-10.8)
[2024-11-20 19:02] LABS: Fibrinogen 162 mg/dl (184-400)
[2024-11-20 19:03] LABS: INR 1.0 (0.9-1.1); Prothrombin Time 10.8 Seconds (9.0-12.0)
[2024-11-20] MEDS: DOCUSATE SODIUM/SENNA 50/8.6MG TAB PO SCH (20:28)
[2024-11-21 06:22] LABS: Hematocrit (blood only) 41.7 % (42.0-52.0); Hemoglobin 14.9 g/dl (14.0-18.0); Immature Granulocytes # (auto) 0.07 K/uL (0.01-0.20); Immature Granulocytes % (auto) 0.8 %; Mean Corpuscular Hemoglobin 31.4 pg (25.0-34.0); Mean Corpuscular Volume 88.0 fL (80.0-100.0); Platelet Count 182 K/uL (130-400); RDW Standard Deviation 43.5 fL (36.4-46.3); Red Blood Count 4.74 M/uL (4.70-6.10); White Blood Count 9.09 K/ul (4.8-10.8)
[2024-11-21 06:35] LABS: Alanine Aminotransferase 20.0 U/L (7-52); Albumin Globulin Ratio 1.6 (0.9-2); Alkaline Phosphatase 48.0 U/L (34-104); Anion Gap 3.0 (3-11); Bilirubin,Total 0.5 mg/dl (0.2-1.0); Blood Urea Nitrogen 11.0 mg/dl (6-23); Calcium 8.6 mg/dl (8.6-10.3); Carbon Dioxide 29.0 mmol/L (21-32); Chloride 109.0 mmol/L (98-107); Creatinine Clr Calc Pharmacy 98.2 ml/min; Globulin 2.3 gm/dl (2.5-4.0); Glucose 105.0 mg/dl (70-99(Fasting)); Magnesium 2.0 mg/dl (1.7-2.4); Potassium 4.4 mmol/L (3.5-5.1); Sodium 141.0 mmol/L (136-145); Total Protein 5.9 gm/dl (6.0-8.3)
[2024-11-21 06:55] LABS: Fibrinogen 216 mg/dl (184-400)
[2024-11-21 06:59] LABS: INR 0.9 (0.9-1.1); Partial Thromboplastin Time 24 Seconds (21-31); Prothrombin Time 10.1 Seconds (9.0-12.0)
[2024-11-21 07:52] LABS: Creatine Kinase 206.0 U/L (30-223)
--- NOTE | 2024-11-21 10:22 | Discharge Summary ---
Discharge Summary Date of Service November 21, 2024 Principal Dx & Hospital Course #1 = Principal Diagnosis (1) Bite, snake: (2) Swelling of right upper extremity: Plan The patient is a 54-year-old male with no significant past medical history who presents to the emergency department after a rattlesnake bite. The patient presented to the emergency department 3 hours after he was bitten by a rattlesnake when he was trying to move with as the road using a stick, and reports that around send patient prefers on the right index finger approximately 1530 this afternoon. He reports he tried to suck the poison of the wound after it happened, and had face and throat feeling funny. Upon arrival right hand, wrist and lower arm were swelling. In the emergency department he was given first dose of CroFab, had laboratories drawn, and had significant improvement in right hand, wrist and arm swelling, and had no symptomatology with breathing and face. Poison control was called, and outlined the protocol for completion of administration of CroFab, for which patient will be admitted to the PCU for monitoring. Pt admitted overnight for rattlesnake bite. On arrival, pt received 6 vials of Crofab followed by 2 vials q6h x3 more doses. He has been having waxing and waning upper extremity swelling, tightness of the hand. His case was discussed with poison control. Last spoke with Dr. Parekh. He recommended checking CK (minimally elevated and has returned to normal). If pain worsens, he recommends giving him an additional 6 vials and reassess. If still not improving, then discuss with Poison control again. #Rattlesnake bite - s/p Crofab 6 vials f/b 2 vials q6h x3 - hgb, platelets, coags, and CK all wnl - spoke with poison control ( ). per discussion arm / torso swelling and bruising are progressing as expected and pt is cleared for discharge - expected total recovery time 1 - 6 weeks - repeat CBC, PT / INR, Fibrinogen in 1 week. Poison control will call pt in about 2 weeks (they have pt's cell #, which was confirmed with pt) - complete 5 days of abx for cellulitis - prn tylenol or ibuprofen for pain control, to be taken with food. if taken for prolonged period, then PPI Admission HPI Per Admitting Provider The patient is a 54-year-old male with no significant past medical history who presents to the emergency department after a rattlesnake bite. The patient presented to the emergency department 3 hours after he was bitten by a rattlesnake when he was trying to move with as the road using a stick, and r eports that around send patient prefers on the right index finger approximately 1530 this afternoon. He reports he tried to suck the poison of the wound after it happened, and had face and throat feeling funny. Upon arrival right hand, wrist and lower arm were swelling and had some decrease sensation associated with swelling. In the emergency department he was given first dose of CroFab, had laboratories drawn, and had some improvement in right hand, wrist and arm swelling, and did not have any shortness of breath. He also received fentanyl IV as needed, as recommended by poison control, advised to avoid morphine due to potential for histamine reaction. Patient did develop some nausea and vomiting, responded to IV Zofran. Poison control recommended additional 2 vials of antivenom 6 hours post initial treatment. Discharge Exam Gen: no acute distress, lying in bed comfortable HEENT: NC/AT, MMM Lungs: nonlabored breathing, CTAB CVS: s1s2nl, RRR Abd: nl bowel sounds, soft, NT / ND : no serrato Ext: no edema RUE: hand tense and swollen. with arm elevation bruising extending into the axilla (expected) and swelling extending into the torso (expected) Neuro: AAOx3 Psych: calm, cooperative Discharge Plan Discharge Items Patient Disposition: Home - Self-Care Reason For Visit: RATTLESNAKE BITE Discharge Diagnosis: Rattlesnake Bite Condition on Discharge: Good Activity: As commented below Activity Comment: Keep arm elevated Non-emergency contact: Primary Care Provider Call non-emergency contact if: you have any medication questions and your symptoms worsen Follow-up/Referrals: Lacey Han DO [Resident] - (Establish and follow up for blood work within 1 week ) PCP,NO [Primary Care Provider] - Diet: Regular Addtl Attending Provider Instructions: - Poison control: . Call if symptoms worsen. Expect call from Poison control in about 2 weeks. - establish and follow up with primary clinic for blood work - you need blood work in about 1 week (11/29/24): CBC, PT / INR, Fibrinogen - return to work after being cleared by poison control (tentative date 12/06/24) - keep right arm elevated - complete 3 more days of antibiotics starting 11/22/24 - take ibuprofen with food and if taking for prolonged time, take with over the counter omeprazole to protect stomach from developing inflammation and ulcers Pending Studies at Discharge: No Stand-Alone Forms: [facility], Work/School Release, Smoking Cessation Medications and DC Order Prescriptions: New acetaminophen 325 mg Tablet 650 mg PO Q4H PRN (Reason: pain) Qty: 30 0RF ibuprofen 400 mg tablet 400 mg PO Q8H PRN (Reason: pain) Qty: 30 0RF cephalexin 500 mg capsule 500 mg PO Q6H 3 Days Qty: 12 0RF Discharge Orders: Discharge Order (Routine); Ordered 11/21/24 Ordered By: Carla Long Admission Data Admit Date/Time: 11/19/24 23:39 Attending Provider: Carla Long Admit Provider: Rolando Orellana Primary Care Provider: PCP,NO Other Providers: Rolando Orellana Hospital Stay Data Consultations 11/19/24 22:41 ED Decision to Admit Stat 11/21/24 10:08 Consult MART[facility] acid loader Routine Pending Results Patient Have Any Pending Studies at Discharge: No Discharge Instructions Given to Patient (Per Discharging Provider) - Poison control: . Call if symptoms worsen. Expect call from Poison control in about 2 weeks. - establish and follow up with primary clinic for blood work - you need blood work in about 1 week (11/29/24): CBC, PT / INR, Fibrinogen - return to work after being cleared by poison control (tentative date 12/06/24) - keep right arm elevated - complete 3 more days of antibiotics starting 11/22/24 - take ibuprofen with food and if taking for prolonged time, take with over the counter omeprazole to protect stomach from developing inflammation and ulcers Total Time Total Time Spent Total Time Spent (In Minutes): 35 Coding Level of Care Code 08482 INP/OBS DISCH >30 MIN Diagnoses Bite, snake W59.11XA Encounter type: initial encounter Swelling of right upper extremity M79.89
== END 2024-11-21 11:07 | disposition home or self-care (01) | DRG 918 ==
LOC: SUATTDRO → ED 16:46 → SUATTDRO 23:39 → EDINP 23:39 → 2S 11-20 02:19

== ENCOUNTER 2024-11-29 17:49 | Inpatient (IN) ==
--- NOTE | 2024-11-29 18:18 | Emergency Department Note ---
History of Present Illness General Chief complaint: Abnormal Labs/Diagnostic Testing Stated complaint: ABN LABS, RATTLESNAKE BITE 1.5 WK AGO Time Seen by Provider: 11/29/24 18:11 History of Present Illness This is a 54-year-old male who presents to the emergency department referred by PCP with complaints of "abnormal laboratory studies following snake bite". On 11/19/2024 the patient sustained a rattlesnake bite to the right hand area. This occurred at 3:30 PM on 11/19/2024. The patient was evaluated here. The patient did receive antivenom. The patient was ultimately discharged following admission to the hospital on 11/21/2024. The patient underwent outpatient testing today and was found to have significant laboratory abnormalities which prompted arrival here today. Patient was noted to have a normal WBC and hemoglobin. There was thrombocytopenia at 32. Low fibrinogen. Elevated INR. Home Medications Medication Instructions Recorded Confirmed Type acetaminophen 500 mg tablet 500 mg PO DIRECTED PRN 11/29/24 11/29/24 History (Tylenol Extra Strength) PAIN/FEVER Allergies Allergy/AdvReac Type Severity Reaction Status Date / Time No Known Allergies Allergy Verified 11/29/24 19:38 Past Med/Surg History Problem List (Updated 11/29/24 @ 23:48 by Ellis Morales PA-C) Fibrinogen decreased (Acute) Elevated INR (Acute) History of venomous snake bite (Acute) Thrombocytopenia (Acute) Venomous snake bite (Acute) Swelling of right upper extremity (Acute) Social History Smoking Status: Never smoker Tobacco Type: Cigarettes and Smokeless Tobacco (Dip or Chew) Do You Dip or Chew Tobacco: No (Former); Hx Alcohol Use: Yes Alcohol type: beer Hx Substance Use: No Preferred Language: [place] Communication Ability: Effective 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 [employer] Layup Line Required: No Beliefs That Will Affect Care: None Current Living Situation: Family Current Living Situation Comment: Home with father Feels Safe at Home: Yes Assistive Devices: None Review of Systems A total of 10 systems reviewed and were otherwise negative Physical Exam Vital Signs Vital Signs - 24 hr 11/29/24 17:53 11/29/24 18:41 11/29/24 19:00 Temperature 36.5 C Temperature Source Temporal Artery Scan Pulse Rate 83 68 75 Pulse Rate from SpO2 Sensor 72 Respiratory Rate 20 14 19 Respiratory Effort / Characteristics Non-Labored Spontaneous Respiratory Depth Normal Blood Pressure 159/96 H 166/100 H Blood Pressure Mean 117 122 Pulse Oximetry 99 98 98 Oxygen Delivery Method Room Air Room Air Room Air Sepsis Recent Fever Within 48 Hours No Sepsis New/Unexplained Change in Mental Status No Sepsis Action Taken by Nursing No Action Required 11/29/24 19:02 11/29/24 19:20 11/29/24 19:20 Temperature Temperature Source Pulse Rate 67 Pulse Rate from SpO2 Sensor Respiratory Rate Respiratory Effort / Characteristics Respiratory Depth Blood Pressure 158/92 H Blood Pressure Mean 106 Pulse Oximetry 98 Oxygen Delivery Method Room Air Sepsis Recent Fever Within 48 Hours Sepsis New/Unexplained Change in Mental Status Sepsis Action Taken by Nursing 11/29/24 19:30 Temperature Temperature Source Pulse Rate 63 Pulse Rate from SpO2 Sensor Respiratory Rate 22 Respiratory Effort / Characteristics Respiratory Depth Blood Pressure 146/90 H Blood Pressure Mean 101 Pulse Oximetry 97 Oxygen Delivery Method Room Air Sepsis Recent Fever Within 48 Hours Sepsis New/Unexplained Change in Mental Status Sepsis Action Taken by Nursing VITAL SIGNS - Vital signs and nursing notes were reviewed. Stable and afebrile. GENERAL - 54-year-old male appearing his stated age who is in no acute distress. Communicates well with provider and answers questions appropriately. SKIN -there is mild edema noted to the dorsal aspect of the right second MCP joint area. There is a small amount of ecchymosis to the left AC area. There is a bandage around a finger of the left hand with a small amount of bleeding. HEAD - NC/AT. EYES - PERRL with EOMI bilaterally. Sclera anicteric. EARS - No deformities of external structures noted on gross examination bilaterally. NOSE - Midline and without cyanosis. No epistaxis or purulent drainage noted. MOUTH/OROPHARYNX - Without perioral cyanosis. NECK - Neck with FROM. No nuchal rigidity. LUNGS - CTA CARDIAC - RRR ABDOMEN - Abdominal contour normal without pulsations or visible masses. BS normoactive all four quadrants. No tenderness, palpable masses, hepatosplenomegaly, or ascites noted. EXTREMITIES - No clubbing or peripheral cyanosis. +5/5 strength noted in UE/LE bilaterally. NEUROLOGIC - Cranial nerves II through XII grossly intact. PSYCH -alert, oriented and pleasant on exam Course Administered Medications Discontinued Medications Crotalidae Polyvalent Antivenin 6 vial/ Sodium Chloride 250 mls @ 250 mls/hr IV NOW STA Stop: 11/29/24 19:52 Last Infusion: 11/29/24 22:08 Dose: Infused Documented By: Admin: 11/29/24 20:28 Dose: 250 mls/hr Documented By: STORMY Medical Decision Making Laboratory Data 11/29/24 19:05 11/29/24 19:05 Lab Results 11/29/24 11/29/24 Range/Units 19:05 20:27 WBC 10.56 (4.8-10.8) K/ul RBC 5.08 (4.70-6.10) M/uL Hgb 15.5 (14.0-18.0) g/dl Hct 43.5 (42.0-52.0) % MCV 85.6 (80.0-100.0) fL MCH 30.5 (25.0-34.0) pg MCHC 35.6 (32.0-36.0) g/dL RDW Std Deviation 42.4 (36.4-46.3) fL RDW Coeff of Lavinia 13.6 (11.5-14.5) % Plt Count 32 L (130-400) K/uL MPV 11.7 (9.4-12.4) fL Immature Gran % (Auto) 1.9 % Neut % (Auto) 62.3 % Lymph % (Auto) 24.4 % [place] % (Auto) 7.2 % Eos % (Auto) 3.3 % Baso % (Auto) 0.9 % Neut # (Auto) 6.57 H (1.40-6.50) K/uL Lymph # (Auto) 2.58 (1.20-3.40) K/uL [place] # (Auto) 0.76 H (0.11-0.59) K/uL Eos # (Auto) 0.35 (0.00-0.50) K/uL Baso # (Auto) 0.10 (0.00-0.20) K/uL Immature Gran # (Auto) 0.20 (0.01-0.20) K/uL PT Cancelled > 90.0 H INR Cancelled > 10.1 H* APTT Cancelled > 139 H* PTT Ratio Cancelled > 4.9 Fibrinogen Cancelled < 50 L* D-Dimer Cancelled 440 Sodium 139 (136-145) mmol/L Potassium 3.7 (3.5-5.1) mmol/L Chloride 103 (98-107) mmol/L Carbon Dioxide 26 (21-32) mmol/L Anion Gap 10 (3-11) BUN 16 (6-23) mg/dl Creatinine 0.99 (0.6-1.4) mg/dl Est Cr Clr Drug Dosing 92.5 ml/min eGFR 89.96 BUN/Creatinine Ratio 16.2 (10-20) Glucose 89 (70-99(Fasting)) mg/dl Calcium 9.8 (8.6-10.3) mg/dl Total Bilirubin 1.0 (0.2-1.0) mg/dl AST 36 (13-39) U/L ALT 56 H (7-52) U/L Alkaline Phosphatase 68 (34-104) U/L Total Creatine Kinase 84 (30-223) U/L Total Protein 7.6 (6.0-8.3) gm/dl Albumin 4.8 (3.4-5.0) gm/dl Globulin 2.8 (2.5-4.0) gm/dl Albumin/Globulin Ratio 1.7 (0.9-2) MDM Narrative Patient was seen and evaluated as above in room B12b then B3. Review was performed of triage nursing notes and vital signs. I did review pertinent previous visits and patient history. After obtaining a thorough history and physical examination the above work up was performed. Patient presents to us today for evaluation of abnormal laboratory studies following snakebite. Please see HPI for full details. Snakebites occurred on 11/19/24. No new bites. Options of care were discussed with the patient. IV access was established. Labs were drawn. There is no leukocytosis or concerning anemia. Platelet count 32, similar to earlier today. INR continues to be elevated and fibrinogen is diminished. D-dimer within normal range. Mild transaminitis with ALT at 56. T. bili mildly elevated at 1.1 earlier today but now normal at 1.0. [id number] called Poison Control Center. They note they will page the on-call tubular riveter and call .back [id number]: I spoke with Inhalation Therapist with Poison Control Center. Recommendation was 6 vials of CroFab IV. Then recommended repeat laboratory studies a few hours following the infusion. He then asked that we reach back out to poison control to discuss further recommendations. I then discussed the case with Dr. Vargas, hospitalist service with [facility] physician group. He did asked that I talk with hematology. 192: I spoke with Dr. Mauricio of hematology. Recommendation is same as the tubular riveter from poison control to do the CroFab, repeat laboratory studies In discussing the case with the hospitalist service, they will ensure repeat laboratory studies and discuss further with poison control as the patient will be on the inpatient service at that time. Please refer to further documentation regarding his stay. GCS: 15 In the evaluation and treatment of this patient the following differential diagnoses were entertained: VICC, DIC, delayed coagulopathy following snakebite, underlying hematologic process, among others Impression & Plan History of venomous snake bite, Thrombocytopenia, Elevated INR, Fibrinogen decreased Discharge Plan Visit Data Chief Complaint: Abnormal Labs/Diagnostic Testing Stated Complaint: ABN LABS, RATTLESNAKE BITE 1.5 WK AGO ED Provider: Christa Hudson ED Midlevel Provider: Ellis Morales Discharge Problem: History of venomous snake bite, Thrombocytopenia, Elevated INR, Fibrinogen decreased Patient Disposition: Admitted As Inpatient Condition: Good Discharge Instructions Interventions: ED Discharge Assessment Last Done: 11/29/24 22:28
[2024-11-29 19:24] LABS: Hematocrit (blood only) 43.5 % (42.0-52.0); Hemoglobin 15.5 g/dl (14.0-18.0); Immature Granulocytes # (auto) 0.20 K/uL (0.01-0.20); Immature Granulocytes % (auto) 1.9 %; Mean Corpuscular Hemoglobin 30.5 pg (25.0-34.0); Mean Corpuscular Volume 85.6 fL (80.0-100.0); Platelet Count 32 K/uL (130-400); RDW Standard Deviation 42.4 fL (36.4-46.3); Red Blood Count 5.08 M/uL (4.70-6.10); White Blood Count 10.56 K/ul (4.8-10.8)
[2024-11-29 19:38] LABS: Alanine Aminotransferase 56.0 U/L (7-52); Albumin Globulin Ratio 1.7 (0.9-2); Alkaline Phosphatase 68.0 U/L (34-104); Anion Gap 10.0 (3-11); Bilirubin,Total 1.0 mg/dl (0.2-1.0); Blood Urea Nitrogen 16.0 mg/dl (6-23); Calcium 9.8 mg/dl (8.6-10.3); Carbon Dioxide 26.0 mmol/L (21-32); Chloride 103.0 mmol/L (98-107); Creatine Kinase 84.0 U/L (30-223); Creatinine Clr Calc Pharmacy 92.5 ml/min; Globulin 2.8 gm/dl (2.5-4.0); Glucose 89.0 mg/dl (70-99(Fasting)); Potassium 3.7 mmol/L (3.5-5.1); Sodium 139.0 mmol/L (136-145); Total Protein 7.6 gm/dl (6.0-8.3)
[2024-11-29] MEDS: SODIUM CHLORIDE IV STA (20:28)
[2024-11-29] MEDS: [UNRECOGNIZED DRUG - OTHER] IV STA (20:28)
--- NOTE | 2024-11-29 21:08 | History & Physical Report ---
Date of Service November 29, 2024 Assessment & Plan (1) Elevated INR: (2) History of venomous snake bite: (3) Thrombocytopenia: (4) Fibrinogen decreased: Plan The patient is a 54-year-old male with past medical history significant for a rattlesnake bite which prompted admission from 11/19-11/21/2024. During admission, he received CroFab per poison control/toxicology recommendations. He tolerated the infusion well, and was discharged on 11/21/2024. He had noted epistaxis x 2, and went to his PCP earlier today, who blossom labs, and was found to have an INR greater than 10.1, and platelets 32. He was referred for evaluation for admission to the ED, and then referred for admission to [facility] service. He has no current complaints at this time other than the aforementioned epistaxis, and a petechial rash on the lower one third of pretibial surfaces bilaterally. Venom induced thrombocytopenia/coagulopathy- Patient completed the appropriate CroFab course during admission from 11/19- 11/21/2024. After episodes of epistaxis, laboratories in the outpatient setting revealed an INR greater than 10.1, fibrinogen less than 50, and platelets of 32. Poison control/toxicology advised repeat treatment with CroFab, which should reverse these hematologic findings. Follow-up laboratories will be ordered per protocol, which will include 6-hour testing after CroFab is completed. There was an inadvertent 2-hour test performed. Follow-up CroFab administration will be determined by the following laboratories and conversation with poison control/toxicology He will be admitted to the PCU for monitoring of tolerance of above treatment, and monitoring for potential for bleeding. Acetaminophen 650 mg by mouth every 6 hours as needed for mild pain or fever Zofran 4 mg IV every 6 hours as needed CBC with differential, chemistry profile and PT/INR/PTT every morning History of Present Illness Chief Complaint: The patient presents to the emergency department referred by PCP due to abnormal laboratories, in particular a supratherapeutic INR greater than 10, that was performed due to epistaxis x 2, and is secondary to a rattlesnake bite that he was admitted for from 11/19-11/21/2024. The patient did receive CroFab per toxicology recommendation, and tolerated well at the previous admission. Primary Care Provider: Odessa Snell, DO The patient is a 54-year-old male with past medical history significant for a rattlesnake bite which prompted admission from 11/19-11/21/2024. During admission, he received CroFab per poison control/toxicology recommendations. He tolerated the infusion well, and was discharged on 11/21/2024. He had noted epistaxis x 2, and went to his PCP earlier today, who blossom labs, and was found to have an INR greater than 10.1, and platelets 32. He was referred for evaluation for admission to the ED, [facility] He has no current complaints at this time. Allergies Allergy/AdvReac Type Severity Reaction Status Date / Time No Known Allergies Allergy Verified 11/29/24 19:38 Home Medications Medication Instructions Recorded Confirmed Type acetaminophen 500 mg tablet 500 mg PO DIRECTED PRN 11/29/24 11/29/24 History (Tylenol Extra Strength) PAIN/FEVER Past Med/Surg History Problem List (Updated 11/29/24 @ 23:48 by Ellis Morales PA-C) Fibrinogen decreased (Acute) Elevated INR (Acute) History of venomous snake bite (Acute) Thrombocytopenia (Acute) Venomous snake bite (Acute) Swelling of right upper extremity (Acute) Social History Smoking Status: Former smoker Tobacco Type: Cigarettes and Smokeless Tobacco (Dip or Chew) Do You Dip or Chew Tobacco: No (Former); Hx Alcohol Use: Yes Alcohol type: beer Hx Substance Use: No Preferred Language: Arabic Communication Ability: Effective Outreach Associate Required: No Beliefs That Will Affect Care: None Current Living Situation: Family Current Living Situation Comment: Lives at home w/ father Other Information That Helps Us Care for You: No Feels Safe at Home: Yes Safety Concerns: Feels Safe At This Time Assistive Devices: None Review of Systems Review of Systems: The patient denies chest pain, palpitations, shortness of breath, dyspnea on exertion, cough, lower extremity swelling, sore throat, fevers, chills, sweats, fatigue, nausea, vomiting, diarrhea , constipation, abdominal pain, pelvic pain, blood in urine or stool, dysuria, urinary frequency or urgency, lightheadedness, dizziness, headache, memory loss, loss of consciousness, imbalance, focal or generalized weakness, numbness or tingling in arms or legs, generalized arthralgias or myalgias, back or neck pain, or night sweats. The review of systems is otherwise negative other than for that already noted above, and at least 10 systems have been reviewed. Physical Exam Physical Exam: The patient is awake, alert and oriented 3, well developed and well nourished, normocephalic and atraumatic, lying in bed and in no acute distress. HEENT--PERRL, EOMI, mucous membranes and oropharynx normal Neck--supple. No JVD. No bruits. Thyroid normal, trachea midline, no adenopathy. Heart--normal S1 and S2. No murmurs, rubs or gallops. Lungs--clear bilaterally, no respiratory distress, no accessory muscle use. Abdomen--normal bowel sounds and soft. Nontender. Nondistended, no hernias or masses, no organomegaly. Extremities--no cyanosis or clubbing. No edema. There are good distal pulses b/l. Dermatologic--normal skin turgor, normal color, no abnormal lymph nodes. Petechial rash lower one third of bilateral extremities, left worse than right Neurologic--cranial nerves II through XII grossly intact. Rheumatologic--normal range of motion. Psychiatric--normal affect. Results & Data Results & Data Vital Signs (Past 12 Hours) Vital Signs Temp Pulse Resp BP Pulse Ox O2 Del Method 11/29/24 19:30 63 22 146/90 H 97 Room Air 11/29/24 19:20 158/92 H 11/29/24 19:20 98 Room Air 11/29/24 19:02 67 11/29/24 19:00 75 19 98 Room Air 11/29/24 18:41 68 14 166/100 H 98 Room Air 11/29/24 17:53 36.5 C 83 20 159/96 H 99 Room Air Laboratory Results Laboratory Results WBC 10.56 K/ul (4.8-10.8) 11/29/24 19:05 RBC 5.08 M/uL (4.70-6.10) 11/29/24 19:05 Hgb 15.5 g/dl (14.0-18.0) 11/29/24 19:05 Hct 43.5 % (42.0-52.0) 11/29/24 19:05 MCV 85.6 fL (80.0-100.0) 11/29/24 19:05 MCH 30.5 pg (25.0-34.0) 11/29/24 19:05 MCHC 35.6 g/dL (32.0-36.0) 11/29/24 19:05 RDW Std Deviation 42.4 fL (36.4-46.3) 11/29/24 19:05 RDW Coeff of Lavinia 13.6 % (11.5-14.5) 11/29/24 19:05 Plt Count 32 K/uL (130-400) L 11/29/24 19:05 MPV 11.7 fL (9.4-12.4) 11/29/24 19:05 Immature Gran % (Auto) 1.9 % 11/29/24 19:05 Neut % (Auto) 62.3 % 11/29/24 19:05 Lymph % (Auto) 24.4 % 11/29/24 19:05 [place] % (Auto) 7.2 % 11/29/24 19:05 Eos % (Auto) 3.3 % 11/29/24 19:05 Baso % (Auto) 0.9 % 11/29/24 19:05 Neut # (Auto) 6.57 K/uL (1.40-6.50) H 11/29/24 19:05 Lymph # (Auto) 2.58 K/uL (1.20-3.40) 11/29/24 19:05 [place] # (Auto) 0.76 K/uL (0.11-0.59) H 11/29/24 19:05 Eos # (Auto) 0.35 K/uL (0.00-0.50) 11/29/24 19:05 Baso # (Auto) 0.10 K/uL (0.00-0.20) 11/29/24 19:05 Immature Gran # (Auto) 0.20 K/uL (0.01-0.20) 11/29/24 19:05 PT > 90.0 Seconds (9.0-12.0) H 11/29/24 22:38 INR > 10.1 (0.9-1.1) H* 11/29/24 22:38 APTT > 139 Seconds (21-31) H* 11/29/24 22:38 PTT Ratio > 4.9 11/29/24 22:38 Fibrinogen < 50 mg/dl (184-400) L* 11/29/24 23:46 D-Dimer 440 ug/L FEU (0-500) 11/29/24 20:27 Sodium 139 mmol/L (136-145) 11/29/24 19:05 Potassium 3.7 mmol/L (3.5-5.1) 11/29/24 19:05 Chloride 103 mmol/L (98-107) 11/29/24 19:05 Carbon Dioxide 26 mmol/L (21-32) 11/29/24 19:05 Anion Gap 10 (3-11) 11/29/24 19:05 BUN 16 mg/dl (6-23) 11/29/24 19:05 Creatinine 0.99 mg/dl (0.6-1.4) 11/29/24 19:05 Est Cr Clr Drug Dosing 92.5 ml/min 11/29/24 19:05 eGFR 89.96 11/29/24 19:05 BUN/Creatinine Ratio 16.2 (10-20) 11/29/24 19:05 Glucose 89 mg/dl (70-99(Fasting)) 11/29/24 19:05 Calcium 9.8 mg/dl (8.6-10.3) 11/29/24 19:05 Total Bilirubin 1.0 mg/dl (0.2-1.0) 11/29/24 19:05 AST 36 U/L (13-39) 11/29/24 19:05 ALT 56 U/L (7-52) H 11/29/24 19:05 Alkaline Phosphatase 68 U/L (34-104) 11/29/24 19:05 Total Creatine Kinase 84 U/L (30-223) 11/29/24 19:05 Total Protein 7.6 gm/dl (6.0-8.3) 11/29/24 19:05 Albumin 4.8 gm/dl (3.4-5.0) 11/29/24 19:05 Globulin 2.8 gm/dl (2.5-4.0) 11/29/24 19:05 Albumin/Globulin Ratio 1.7 (0.9-2) 11/29/24 19:05 Code Status & VTE Plan Code Status Full code VTE Prophylaxis Plan VTE Prophylaxis will be ordered: Yes PG Care Time/CCT Total # of Minutes Spent Total Time Spent with Patient: Total time spent is greater than 50% in coordination of care (as documented) at patient's floor/unit and/or counseling patient: Coding Level of Care Code 61209 INT INP/OBS CARE 3/75MIN Diagnoses Elevated INR R79.1 History of venomous snake bite Z91.89 Thrombocytopenia D69.6 Fibrinogen decreased D68.2
[2024-11-29 21:30] LABS: Prothrombin Time > 90.0 Seconds (9.0-12.0)
[2024-11-29 21:34] LABS: Fibrinogen < 50 mg/dl (184-400); INR > 10.1 (0.9-1.1)
[2024-11-29 21:35] LABS: Partial Thromboplastin Time > 139 Seconds (21-31)
[2024-11-29] MEDS ORDERED: ONDANSETRON INJ 2 MG/ML 2 ML VIAL IV PRN (22:58)
[2024-11-29] MEDS ORDERED: ACETAMINOPHEN 325 MG TAB PO PRN (22:58)
[2024-11-30 00:42] LABS: Prothrombin Time > 90.0 Seconds (9.0-12.0)
[2024-11-30 00:45] LABS: INR > 10.1 (0.9-1.1); Partial Thromboplastin Time > 139 Seconds (21-31)
[2024-11-30 01:08] LABS: Fibrinogen < 50 mg/dl (184-400)
[2024-11-30 05:06] LABS: Hematocrit (blood only) 40.9 % (42.0-52.0); Hemoglobin 14.4 g/dl (14.0-18.0); Immature Granulocytes # (auto) 0.15 K/uL (0.01-0.20); Immature Granulocytes % (auto) 1.9 %; Mean Corpuscular Hemoglobin 30.6 pg (25.0-34.0); Mean Corpuscular Volume 87.0 fL (80.0-100.0); Platelet Count 30 K/uL (130-400); RDW Standard Deviation 42.3 fL (36.4-46.3); Red Blood Count 4.70 M/uL (4.70-6.10); White Blood Count 7.96 K/ul (4.8-10.8)
[2024-11-30 05:19] LABS: Partial Thromboplastin Time 25 Seconds (21-31)
[2024-11-30 05:21] LABS: Alanine Aminotransferase 52.0 U/L (7-52); Albumin Globulin Ratio 1.6 (0.9-2); Alkaline Phosphatase 60.0 U/L (34-104); Anion Gap 9.0 (3-11); Bilirubin,Total 1.1 mg/dl (0.2-1.0); Blood Urea Nitrogen 14.0 mg/dl (6-23); Calcium 9.3 mg/dl (8.6-10.3); Carbon Dioxide 28.0 mmol/L (21-32); Chloride 104.0 mmol/L (98-107); Creatinine Clr Calc Pharmacy 95.4 ml/min; Globulin 2.7 gm/dl (2.5-4.0); Glucose 102.0 mg/dl (70-99(Fasting)); Magnesium 2.2 mg/dl (1.7-2.4); Potassium 4.2 mmol/L (3.5-5.1); Sodium 141.0 mmol/L (136-145); Total Protein 6.9 gm/dl (6.0-8.3)
[2024-11-30 05:31] LABS: Fibrinogen < 50 mg/dl (184-400)
[2024-11-30 05:32] LABS: Prothrombin Time > 90.0 Seconds (9.0-12.0)
[2024-11-30 05:33] LABS: INR > 10.1 (0.9-1.1)
[2024-11-30 07:36] VITALS: RESP 18
[2024-11-30 11:18] VITALS: BP 149/80; TEMP 97.7; O2SAT 97
[2024-11-30 12:46] LABS: Hematocrit (blood only) 43.4 % (42.0-52.0); Hemoglobin 15.1 g/dl (14.0-18.0); Mean Corpuscular Hemoglobin 30.6 pg (25.0-34.0); Mean Corpuscular Volume 88.0 fL (80.0-100.0); Platelet Count 31 K/uL (130-400); RDW Standard Deviation 44.0 fL (36.4-46.3); Red Blood Count 4.93 M/uL (4.70-6.10); White Blood Count 8.22 K/ul (4.8-10.8)
[2024-11-30 13:11] LABS: INR 1.2 (0.9-1.1); Partial Thromboplastin Time 24 Seconds (21-31); Prothrombin Time 13.1 Seconds (9.0-12.0)
[2024-11-30 14:11] LABS: Fibrinogen 83 mg/dl (184-400)
[2024-11-30 15:22] VITALS: PULSE 64
--- NOTE | 2024-11-30 15:22 | Discharge Summary ---
Discharge Summary Date of Service November 30, 2024 Principal Dx & Hospital Course #1 = Principal Diagnosis (1) History of venomous snake bite: (2) Elevated INR: (3) Thrombocytopenia: (4) Fibrinogen decreased: Plan The patient is a 54-year-old male with past medical history significant for a rattlesnake bite which prompted admission from 11/19-11/21/2024. During admission, he received CroFab per poison control/toxicology recommendations. He tolerated the infusion well, and was discharged on 11/21/2024. He had noted epistaxis x 2, and went to his PCP earlier today, who blossom labs, and was found to have an INR greater than 10.1, and platelets 32. He was referred for evaluation for admission to the ED, and then [facility]. He has no current complaints at this time other than the aforementioned epistaxis, and a petechial rash on the lower one third of pretibial surfaces bilaterally. Venom induced thrombocytopenia/coagulopathy- Patient completed the appropriate CroFab course during admission from 11/19- 11/21/2024. After episodes of epistaxis, laboratories in the outpatient setting revealed an INR greater than 10.1, fibrinogen less than 50, and platelets of 32. Poison control/toxicology advised repeat treatment with CroFab, which should reverse these hematologic findings - 6 vials CroFab administered evening of 11/29 Initial labs at 6h unchanged, however, 12h labs with improvement - fibrinogen still low but up to 80, INR 1.2, PTT normal, platelets remain 31 and H/h normal I discussed with poison control - toxicology attending reviewed the case this AM. Advised no additional CroFab at this time regardless of labs. No specific advice on monitoring/discharge however advised counseling wrt bleeding precauti ons. Mr. Jamison prefers to return home. Labs improved and I do not see benefit of continued hospital monitoring since asymptomatic and would not plan to administer more CroFab in absence of bleeding anyway. R hand swelling persists (over 1st MCP, 1st digit) but overall much improved from index admission. There is old ecchymosis R upper inner arm, no arm swelling. Puncture wound over R 1st MCP no drainage or warmth. Purplish discoloration in this area without necrosis, same with finger. Flexion of 1st digit impaired due to swelling. I discussed precautions - avoidance of activities that could cause bleeding, falls, head injury. avoidance of ASA and NSAIDS. See DC instructions. Prudent to have him get repeat labs with primary care in 1 week. Staff is messaging the office regarding this. 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 During admission, he received CroFab per poison control/toxicology recommendations. He tolerated the infusion well, and was discharged on 11/21/2024. He had noted epistaxis x 2, and went to his PCP earlier today, who blossom labs, and was found to have an INR greater than 10.1, and platelets 32. He was referred for evaluation for admission to the ED, and then referred for admission to [facility] service. He has no current complaints at this time. Discharge Exam See description of RUE in plan above Discharge Plan Discharge Items Patient Disposition: Home - Self-Care Reason For Visit: RATTLESNAKE VENOM COAGULOPATHY Discharge Diagnosis: Rattlesnake venom coagulopathy Condition on Discharge: Good Activity: Per Instructions section Non-emergency contact: Primary Care Provider Call non-emergency contact if: you have any medication questions and your symptoms worsen Follow-up/Referrals: Odessa Snell, [Primary Care Provider] - Diet: Regular Addtl Attending Provider Instructions: Rattlesnake venom coagulopathy and low platelets Fortunately no major bleeding 6 more vials antivenom administered Be aware there can be a delayed allergic reaction to antivenom (see handout). Seek medical attention if you are having an allergic reaction like hives / rash / fever / myalgia Lab tests improved at midday check today We discussed your plan of care with the toxicology physician at poison center, angelica did not recommend more antivenom at this time Please have your blood drawn again in one week with primary care Meanwhile continue to take precautions against bleeding - avoid anything that could cause a head injury: motorcycle / bicycle / ATV, ladders, power tools / saws, knives. Avoid taking aspirin or nsaids (ibuprofen/motrin/advil or aleve/naproxen) because they increase the risk of gastrointestinal bleeding. Seek immediate medical attention if you have significant bleeding of any kind, head trauma, loss of consciousness or confusion/lethargy Acetaminophen is safe in the recommended doses per the label You should stay off work until your blood clotting normalizes, because of the nature of your job It was a pleasure taking care of you in the hosptial, Amina Jose MD Pending Studies at Discharge: No Stand-Alone Forms: My [facility], Work/School Release, Smoking Cessation Medications and DC Order Prescriptions: Continued acetaminophen [Tylenol Extra Strength] 500 mg Tablet 500 mg PO DIRECTED PRN (Reason: PAIN/FEVER) Discharge Orders: Discharge Order (Routine); Ordered 11/30/24 Ordered By: Amina Mendez/Other Patient Handouts: Poisonous Snakebite Antivenom Admission Data Admit Date/Time: 11/29/24 21:07 Attending Provider: Amina Jose Admit Provider: Rolando Orellana Primary Care Provider: Odessa Snell Other Providers: Castro Mauricio; Rolando Orellana Other Interventions: Discharge Summary Assessment (RN) Last Done: 11/30/24 15:20 Hospital Stay Data Consultations 11/29/24 19:07 ED Decision to Admit Stat 11/29/24 22:58 Consult Hematology Routine Pending Results Patient Have Any Pending Studies at Discharge: No Discharge Instructions Given to Patient (Per Discharging Provider) Rattlesnake venom coagulopathy and low platelets Fortunately no major bleeding 6 more vials antivenom administered Be aware there can be a delayed allergic reaction to antivenom (see handout). Seek medical attention if you are having an allergic reaction like hives / rash / fever / myalgia Lab tests improved at midday check today We discussed your plan of care with the toxicology physician at poison center, he did not recommend more antivenom at this time Please have your blood drawn again in one week with primary care Meanwhile continue to take precautions against bleeding - avoid anything that could cause a head injury: motorcycle / bicycle / ATV, ladders, power tools / saws, knives. Avoid taking aspirin or nsaids (ibuprofen/motrin/advil or aleve/naproxen) because they increase the risk of gastrointestinal bleeding. Seek immediate medical attention if you have significant bleeding of any kind, head trauma, loss of consciousness or confusion/lethargy Acetaminophen is safe in the recommended doses per the label You should stay off work until your blood clotting normalizes, because of the nature of your job It was a pleasure taking care of you in the hosptial, Amina Jose MD Total Time Total Time Spent Total Time Spent (In Minutes): I personally spent: 45 minutes today on clinical care activities including: reviewing chart notes and vital signs reviewing serial labs discussions with poison control by phone examining and counseling the patient writing orders discharge instructions documentation Coding Level of Care Code 70462 INP/OBS DISCH >30 MIN Diagnoses History of venomous snake bite Z91.89 Elevated INR R79.1 Thrombocytopenia D69.6 Fibrinogen decreased D68.2
== END 2024-11-30 15:43 | disposition home or self-care (01) | DRG 949 ==
LOC: ED 17:49 → 4W 21:07 → SUATTDRO 21:07 → 4W 22:28